=== PATIENT | male | born 1965 ===

== ENCOUNTER 2023-11-16 08:21 | Day surgery (SDC) | payer BC ==
[~2023-11-16] VITALS: Ht 193 cm; Wt 100.9 kg
[~2023-11-16 08:21] MED LIST: CEFAZOLIN SODIUM 2 GM/20 ML SYR IV SCH; CIALIS5 MG PO; IBLOOD GLUCOSE TEST STRIP 1 EA TEST VI PRN; K2 PLUS D3 TAB1 EACH PO; LACTATED RINGER'S 1,000 ML IV SCH; LIDOCAINE HCL 1% 5 ML SDV INJ ONE; LOW DOSE ASPIRI81 MG PO; MIDAZOLAM HCL 5 MG/5 ML VIAL IV PRN; TESTOSTERO200 MG/1 M IM; VITAMIN C1000 MG PO; fentaNYL citrate 100 MCG/2 ML VIAL IV PRN
[2023-11-16 08:33] VITALS: BP 140/87
[2023-11-16] MEDS ORDERED: CENTRUM SILVER1 EAC9 PO (08:50)
[2023-11-16] MEDS ORDERED: CLINDAMYCIN PHO60 ML TOP (08:50)
[2023-11-16] MEDS ORDERED: VITAMIN E45 M1 PO (08:51)
[2023-11-16] MEDS ORDERED: ZINC PO (08:51)
[2023-11-16] MEDS ORDERED: MELOXICAM15 MG PO (08:52)
[2023-11-16] MEDS ORDERED: MIDAZOLAM HCL 5 MG/5 ML VIAL ONE (08:53)
[2023-11-16] MEDS ORDERED: fentaNYL citrate 100 MCG/2 ML VIAL ONE (08:53)
--- NOTE | 2023-11-16 10:07 | NUR ---
11/16/23 Mansi Parson 1004-PATIENT ARRIVED TO PACU ON RA RR EVEN.HOB ELEVATED PATIENT AWAKE DROWSY DENIES PAIN OR NAUSEA. ORIENTED TO PACU. IVF INFUSING. PAMTIENT ENCOURAGED TO PASS GAS DOZES BACK TO SLEEP.
[2023-11-16 10:37] VITALS: BP 131/94
--- NOTE | 2023-11-16 19:04 | OR ---
[facility] [address], [place] [address] Signed DATE OF OPERATION: 11/16/2023 SURGEON: Price Hay MD PREOPERATIVE DIAGNOSIS: History of rectal bleeding, status post hemorrhoidal banding (cured). POSTOPERATIVE DIAGNOSES: 1. Minimal diverticular change in sigmoid and left colon. 2. Mild proctitis. 3. No evidence of residual hemorrhoidal disease. PROCEDURE: Total colonoscopy to cecum with biopsy of rectum. ANESTHESIA: Intravenous sedation, fentanyl 150 mcg and Versed 5 mg. INDICATIONS: This 58-year-old white man is a patient of JHONATAN Foote. He was referred by a friend with complaints of significant rectal bleeding. I saw him on October 19, 2023 in the office setting and he was found to have hemorrhoidal disease for which hemorrhoidal banding was undertaken x2. He has had no bleeding since that time. He is admitted at this time to undergo colonoscopy as it has been greater than 20 years since his last colonoscopy to assure there were no other cause of rectal bleeding more proximally in the rectum or more proximal colon. He understands the risk of bleeding, infection, and perforation related to colonoscopy and wished to proceed. FINDINGS: The prep was good. Complete colonoscopy was undertaken of the cecum. There were a few scattered diverticula in the sigmoid and left colon. There was mild proctitis, possibly bowel prep related. There was no evidence of residual hemorrhoidal disease, bleeding, or other problem. DESCRIPTION OF PROCEDURE: The patient was brought to the endoscopy suite and placed in lateral decubitus position given intravenous sedation to the point of slurred speech and nystagmus. Digital rectal examination was normal. An Olympus video colonoscope was passed in the rectum and manipulated throughout the Electronically Signed By: PRICE HAY MD 11/16/23 190 PATIENT NAME: PRICE BILLINGS OPERATIVE REPORT DATE OF : 67 REPORT #: [id number] PHYSICIAN: PRICE HAY MD PCP: JESSICA BILLINGS CREAMERY WORKER REPORT IS CONFIDENTIAL AND NOT TO BE RELEASED WITHOUT AUTHORIZATION [facility] [address], [place] [address] Signed colon noting diverticula of the sigmoid and left colon and small numbers. Scope was ultimately advanced to the cecum. Careful visualization the cecum was noted. Scope was withdrawn and irrigation undertaken as necessary, showing normal mucosa with episodic diverticular change. Retroflexed view in the rectum confirmed some mild proctitis, possibly bowel prep related. Biopsies were obtained. There was no sign of residual internal hemorrhoidal disease. The scope was carefully withdrawn and removed. The patient was taken to the recovery room in good condition. CONCLUDING DIAGNOSES: 1. Apparent resolution of internal hemorrhoidal disease following banding on October 19, 2023. 2. Mild proctitis. 3. Scattered diverticula. PLAN: Recommend repeat colonoscopy in 10 years sooner if clinically indicated. We will review his pathology report regarding rectal biopsies. We would recommend high-fiber diet or fiber supplement. He will return to the ongoing care of JHONATAN Foote. MD RAMIRO Dent/ESVIN /[id number] cc: Jessica Billings NP Copies: JESSICA BILLINGS NP ~ Electronically Signed By: PRICE HAY MD 11/16/23 1904 PATIENT NAME: PRICE BILLINGS OPERATIVE REPORT DATE OF : 67 REPORT #: [id number] PHYSICIAN: PRICE HAY MD PCP: JESSICA BILLINGS NP REPORT IS CONFIDENTIAL AND NOT TO BE RELEASED WITHOUT AUTHORIZATION
--- NOTE | 2023-11-21 19:49 | PATH ---
[facility] [address] [facility] [place] [address] Signed SPECIMEN(S): A RECTUM BIOPSY SPECIMEN SOURCE: A. RECTUM BIOPSY CLINICAL HISTORY: Rectal bleeding, mild proctitis FINAL PATHOLOGIC DIAGNOSIS: Rectum biopsy: - Benign colonic mucosa with slight hyperplastic features (two fragments). - Negative for pathologic inflammation. JVR:clv MICROSCOPIC EXAMINATION: Histologic sections of all submitted blocks are examined by light microscopy. These findings, together with the gross examination, support the pathologic diagnosis. GROSS DESCRIPTION: The specimen, labeled and designated "Manuelito rectum biopsy," is received in formalin and consists of two chan soft tissue fragments, ranging from 0.2-0.3 cm. Entirely submitted in (A1). VB (under the direct supervision of a pathologist) The Gross Description was prepared using a voice recognition system. The report was reviewed for accuracy; however, sound-alike word errors, addition and/or deletions may occur. If there is any question about this report, please contact Client Services. PERFORMING LABORATORY: Technical component was performed by [email or web address], [address] [place] [id number] (CLIA# [id number]). Professional interpretation was performed by [facility], [address] [place] [id number] (CLIA#: [id number]). Diagnostician: Jeramy Iyer MD Pathologist Electronically Signed 11/21/2023 Copies: PATIENT NAME: PRICE MARTINEZ PATHOLOGY DATE OF : 67 REPORT #: [id number] PHYSICIAN: BRITTANY PATHOLOGY PCP: CHINYERE MARTINEZ NP REPORT IS CONFIDENTIAL AND NOT TO BE RELEASED WITHOUT AUTHORIZATION [address] [address] Signed ~ PATIENT NAME: PRICE MARTINEZ PATHOLOGY DATE OF : 67 REPORT #: [id number] PHYSICIAN: BRITTANY HUDSON PCP: CHINYERE MARTINEZ NP REPORT IS CONFIDENTIAL AND NOT TO BE RELEASED WITHOUT AUTHORIZATION
== END 2023-11-16 10:55 | disposition home or self-care (01) ==
LOC: DS 08:21
PROVIDERS: ATTEND Surgery
PROC: 0DBP8ZX Excision of Rectum, Via Natural or Artificial Opening Endoscopic, Diagnostic (ICD-10-PCS; principal; 2023-11-16 09:45)
DX: K62.89 Other specified diseases of anus and rectum (principal); K57.30 Diverticulosis of large intestine without perforation or abscess without bleeding; N40.0 Benign prostatic hyperplasia without lower urinary tract symptoms; Z96.611 Presence of right artificial shoulder joint; Z79.82 Long term (current) use of aspirin; Z79.899 Other long term (current) drug therapy
CPT/HCPCS: 99153; G0500; J0690; J2250; J3010; J7121